=== PATIENT | male | born 1970 | race Caucasian/White ===

== ENCOUNTER 2022-06-14 14:16 | Emergency (ER) | payer SELFPAY ==
[~2022-06-14] VITALS: Ht 182.9 cm; Wt 74.8 kg
--- NOTE | 2022-06-14 14:35 | NUR ---
BIBS C/O DIARRHEA SINCE THIS MORNING, 6X. AMBULATORY, PLACED ON BED.
[2022-06-14] MEDS ORDERED: METR-147 PO (15:06)
--- NOTE | 2022-06-14 15:21 | NUR ---
STOOL SAMPLE SENT TO LAB
--- NOTE | 2022-06-14 15:38 | NUR ---
Patient discharged to home in stable condition. Written and verbal after care instructions given. Patient verbalizes understanding of instruction.
[2022-06-14 15:56] LABS: OCCULT BLOOD STOOL NEGATIVE (NEGATIVE)
[2022-06-14 16:28] VITALS: BP 135/75
== END 2022-06-14 15:38 | disposition home or self-care (01) ==
LOC: ER 14:20
DX: R19.7 Diarrhea, unspecified (principal); Z79.899 Other long term (current) drug therapy
CPT/HCPCS: 82272-TC; 87045-TC; 89055